=== PATIENT | female | born 1980 | race Caucasian/White ===

== ENCOUNTER 2016-12-05 19:24 | Emergency (ER) | payer BC ==
[~2016-12-05] VITALS: Ht 175.3 cm; Wt 63.0 kg
[2016-12-05 19:32] VITALS: BP 123/76; PULSE 96; RESP 18; TEMP 98.8; O2SAT 97
[2016-12-05] MEDS ORDERED: TRAZ50TA12 PO (20:39)
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
[2016-12-05] MEDS ORDERED: ACETAMINOPHEN/HYDROcodone 325 MG/5 MG TAB PO ONE (21:15)
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
[2016-12-05] MEDS ORDERED: TRAM50TA PO (21:59)
[2016-12-05] MEDS ORDERED: IBUP-232 PO (21:59)
[2016-12-05] MEDS ORDERED: ROBA500T PO (21:59)
[2016-12-05 22:13] VITALS: RESP 16
== END 2016-12-05 22:14 | disposition home or self-care (01) ==
LOC: PHED 19:24 → PHEFT 22:14
DX: S20.211A Contusion of right front wall of thorax, initial encounter (principal); V19.3XXA Pedal cyclist (driver) (passenger) injured in unspecified nontraffic accident, initial encounter; Y93.55 Activity, bike riding; Y92.832 Beach as the place of occurrence of the external cause; Z79.899 Other long term (current) drug therapy
CPT/HCPCS: 71101; 99283